=== PATIENT | female | born 1995 | race Caucasian/White ===

== ENCOUNTER 2018-01-16 02:50 | Emergency (ER) | payer BC, SELFPAY | END 2018-01-16 07:20 | disposition home or self-care (01) | LOC: ERS 02:50 | DX: F10.129 Alcohol abuse with intoxication, unspecified (principal) | CPT/HCPCS: 96360 ==

== ENCOUNTER 2018-09-06 16:44 | Emergency (ER) | payer BC ==
[2018-09-06] MEDS ORDERED: PROPOFOL 20 ML ONE (16:55)
--- NOTE | 2018-09-06 17:55 | RAD ---
LEFT SHOULDER TWO VIEW 09/06/18 HISTORY: Post reduction. COMPARISON: Radiograph same day. FINDINGS: Satisfactory alignment post reduction left glenohumeral joint. Large Hill-Sachs deformity posterolate ral left humeral head. Heart size is enlarged. IMPRESSION: Satisfactory post reduction appearance. POS: [facility]
== END 2018-09-06 17:45 | disposition home or self-care (01) ==
LOC: SCSER 16:44
DX: S43.015A Anterior dislocation of left humerus, initial encounter (principal); S43.035A Inferior dislocation of left humerus, initial encounter; W19.XXXA Unspecified fall, initial encounter
CPT/HCPCS: 23650; J2704